=== PATIENT | female | born 1995 | race Caucasian/White ===

== ENCOUNTER 2017-02-20 12:27 | Emergency (ER) | payer OTHER ==
[~2017-02-20] VITALS: Ht 160 cm; Wt 86.2 kg
[2017-02-20] MEDS ORDERED: NORG1TAB15 (12:47)
--- NOTE | 2017-02-20 12:51 | ED Lower Extremity ---
General Chief Complaint: Lower Extremity Stated Complaint: R ANKLE INJ Nursing Triage Note: ARRIVED VIA . PT IS IN [facility] AND STATES SHE FELL ON THE WET GRASS AND HURT HER RIGHT ANKLE. Nursing Sepsis Screen: No Definite Risk Source: patient Exam Limitations: no limitations History of Present Illness Time seen by provider: 12:39 Initial Comments This 21-year-old young lady presents to emergency room with a right ankle injury. She was walking in the grass when she tripped. She is uncertain of the exact mechanism. She has significant edema and pain over the right lateral malleolus. She had a similar injury in November which was evaluated and found to be sprained. She denies any other injury at this time. She is having difficulty ambulating. She has not taken anything for pain. Onset: just prior to arrival Allergies and Home Medications Allergies Coded Allergies: Penicillins (Verified Allergy, Unknown, 02/20/17) Home Medications Norgestimate-Ethinyl Estradiol 1 Each Tablet, (Reported) Constitutional: no symptoms reported EENTM: no symptoms reported Respiratory: no symptoms reported Cardiovascular: no symptoms reported Gastrointestinal: no symptoms reported Genitourinary: no symptoms reported Musculoskeletal: see HPI Skin: no symptoms reported Psychiatric/Neurological: No Symptoms Reported Past Oclfgpo-Zgevrc-Guirfc Hx Patient Social History Alcohol Use: Denies Use Recreational Drug Use: No Smoking Status: Never a Smoker Recent Foreign Travel: No Contact w/Someone Who Travel: No Recent Infectious Disease Expo: No Recent Hopitalizations: No Surgeries History of Surgeries: Yes (TUBES IN EARS) Respiratory History of Respiratory Disorde: No Cardiovascular History of Cardiac Disorders: No Neurological History of Neurological Disord: No Reproductive System : No Last Menstrual Period: Feb 20, 2017 Genitourinary History of Genitourinary Disor: No Gastrointestinal History of Gastrointestinal Di: No Musculoskeletal History of Musculoskeletal Dis: Yes (history right ankle sprain) Endocrine History of Endocrine Disorders: No HEENT History of HEENT Disorders: No Cancer History of Cancer: No Psychosocial History of Psychiatric Problem: No Integumentary History of Skin or Integumenta: No Physical Exam Vital Signs Vital Sign - Last 12Hours 02/20/17 12:38 Temp 98.0 Pulse 77 Resp 18 B/P (MAP) 138/83 Pulse Ox 98 O2 Delivery Room Air Capillary Refill : Less Than 3 Seconds General Appearance: WD/WN, no apparent distress HEENT: normal ENT inspection Cardiovascular: regular rate, rhythm, no edema, no murmur Respiratory: lungs clear, normal breath sounds, no respiratory distress, no accessory muscle use Legs: right leg non-tender, right leg normal inspection, right leg no evidence of injury Ankles: right ankle bone tenderness (lateral malleolus), right ankle limited range of motion, right ankle pain, right ankle soft tissue tenderness, right ankle swelling Feet: right foot non-tender, right foot normal inspection, right foot normal range of motion, right foot no evidence of injury Neurologic/Tendon: normal sensation, normal motor functions, normal tendon functions Neurologic/Psychiatric: 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 James wrap was applied. Crutches were dispensed. paperwork was completed. Ibuprofen 800 mg was given at patient's request. Diagnostic Imaging Diagonstic Imaging: Xray Plain Films/CT/US/NM/MRI: ankle Comments Right ankle x-ray viewed by me and report reviewed. See report below: NAME: CHEMA ZEPEDA [facility] REC#: [id number] PT STATUS: REG ER : 1995 PHYSICIAN: AZALIA DENNIS MD ADMIT DATE: 02/20/17/ER Draft Date of Exam:02/20/17 ANKLE, RIGHT, 3 VIEWS INDICATION: Ankle pain and swelling. FINDINGS: There is soft tissue swelling overlying the lateral malleolus but there is no evidence of a distal fibular fracture. The distal tibia is also unremarkable. There is no widening of the mortise. The talar dome is normal in morphology. The visualized bones of the hindfoot are unremarkable. IMPRESSION: 1. Lateral ankle soft tissue swelling without evidence of fracture or malalignment. Dictated on workstation # [id number] Dict: 02/20/17 1256 Trans: 02/20/17 1301 [facility] [id number] Interpreted by: KENNETH MCKEON MD Departure Impression Impression: Primary Impression: Right ankle sprain Qualified Codes: S93.401A - Sprain of unspecified ligament of right ankle, initial encounter Disposition: HOME, SELF-CARE Condition: Stable Departure-Patient Inst. Decision time for Depature: 13:01 Referrals: NO,LOCAL PHYSICIAN (PCP/Family) Primary Care Physician Patient Instructions: Ankle Sprain (DC) Add. Discharge Instructions: Rest, icing in 20 minute intervals, elevation, and compressive wraps should help with pain and swelling. Use crutches as necessary to ambulate. You should wear a supportive ankle brace anytime active for at least 6 weeks after this injury to prevent reinjury. You may take ibuprofen up to 800 mg every 8 hours as needed for pain. Add Tylenol (acetaminophen) for pain not controlled by ibuprofen. All discharge instructions reviewed with patient and/or family. Voiced understanding. AZALIA DENNIS MD Feb 20, 2017 12:51
--- NOTE | 2017-02-20 13:01 | Diagnostic Imaging Report ---
INDICATION: Ankle pain and swelling. FINDINGS: There is soft tissue swelling overlying the lateral malleolus but there is no evidence of a distal fibular fracture. The distal tibia is also unremarkable. There is no widening of the mortise. The talar dome is normal in morphology. The visualized bones of the hindfoot are unremarkable. IMPRESSION: 1. Lateral ankle soft tissue swelling without evidence of fracture or malalignment. Dictated by: Dictated on workstation # [id number]
[2017-02-20] MEDS ORDERED: IBUPROFEN 800 MG (MOTRIN) TAB PO ONE (13:30)
[2017-02-20 13:39] VITALS: BP 138/83
== END 2017-02-20 13:39 | disposition home or self-care (01) ==
LOC: ER 12:31
DX: S93.401A Sprain of unspecified ligament of right ankle, initial encounter (principal); W18.40XA Slipping, tripping and stumbling without falling, unspecified, initial encounter; Y93.01 Activity, walking, marching and hiking
CPT/HCPCS: 73610; 99283